=== PATIENT | male | born 1960 | race Caucasian/White ===

== ENCOUNTER 2017-10-28 09:22 | Emergency (ER) | payer BC, OTHER ==
[2017-10-28] MEDS ORDERED: ASPIRIN 81 MG CHEW TAB PO ONE (10:15)
[2017-10-28 10:22] LABS: eGFR (African) > 60; eGFR (Non-African) > 60
--- NOTE | 2017-10-28 10:28 | ED Physician Documentation ---
Chest Pain - HISTORIAN Historian: patient, spouse - HPI Chief Complaint: Chest Pain Additional Information: onset 829 cehst pain lsb rad sl lt gone now but l;t arm numb-has had prev 2 stents plus baloon 13 yrs ago and fm hx cardiac ds Timing: gradual onset, other (chest pain gone but arm discomfort continues denies sob or diaphoresis---2 weeksagosimilar sharpo pain plus diaphoresis and sob resolved w/ no eval) Last known Well Date: 10/28/17 Last Known Well Time: 08:30 Context: activity Severity: mild, moderate Quality: pressure, tightness, sharp, other (arm numb reportedly w/o pain) Chest Pain Signs/Symptoms: denies: nausea, vomiting, diaphoresis, dizziness, dyspnea, tachypnea, tachycardia Relieved By: rest (gone now-chest pain) - ROS CONST: no problems MS/LYMPH: none GI/: none EYES/ENT: none SKIN/ENDO: none NEURO/PSYCH: anxiety (slight concern) - PAST HX [place] risk factors: hypertension, cardiac disease Allergies/Adverse Reactions: Allergies Allergy/AdvReac Type Severity Reaction Status Date / Time No Known Drug Allergies Allergy Verified 10/28/17 10:28 Home Medications: Ambulatory Orders Medication Instructions Recorded Aspirin [Aspir-Low] 81 mg PO D 10/28/17 - SOCIAL HX Smoking History: non-smoker Alcohol Use: other (occnl thc) Drug Use: other ( 25-30 beer per week) - FAMILY HX Family HX: none - REVIEWED ASSESSMENTS Nursing Assessment Reviewed: Yes Vitals Reviewed: Yes ED Results Lab/Radiology - Orders Orders: ED Orders Category Date Time Status Continuous EKG monitoring Q30M Care 10/28/17 10:15 Ordered Continuous Pulse Oximetry Q30M Care 10/28/17 10:[address] IV Lock 1T Care 10/28/17 10:15 Ordered CHEST 1VIEW [RAD] Stat Exams 10/28/17 Ordered CBC/PLATELET/DIFF Routine Lab 10/28/17 10:15 Ordered CMP Routine Lab 10/28/17 10:15 Ordered CREATINE KINASE Routine Lab 10/28/17 10:15 Ordered TROPONIN I (cTnI) Stat Lab 10/28/17 10:15 Ordered Aspirin Med 10/28/17 10:15 Once 324 mg PO NOW ONE Oxygen Daily Oxygen 10/28/17 10:15 Ordered EKG WITH COMPARISON Stat Ther 10/28/17 10:15 Ordered Chest Pain Physical Exam - EXAM General Appearance: mild distress, anxious EENT: eye inspection normal Neck: nml inspection. No: no carotid bruit, JVD present, lymphadenopathy Respiratory: chest non-tender, nml breath sounds. No: no resp. distress CVS: reg. rate & rhythm, no murmur, no gallop, no friction rub Abdomen: soft, non-tender Skin: warm/dry, normal color. No: cyanosis, diaphoresis, jaundice Extremities: non-tender, normal range of motion, no evidence of injury, no edema Neuro: oriented X3, motor nml, sensation nml, mood/affect nml, cognition normal Discharge Clincal Impression: atypical chest pain, pmh cardiac problem w/stents Referrals: Primary Doctor,No [Primary Care Provider] - 2 Days Comments: tko contact cardiologists and DR PETERS very soon. rted stat sy return Condition: Good Disposition: 01 HOME, SELF-CARE Decision to Admit: NO Decision Time: 14:53
[2017-10-28 10:29] LABS: BASOPHILS % 0.7 (0.0-1.5); EOSINOPHILS % 4.6 % (0.0-6.8); MEAN CORPUSCULAR HEMOGLOBIN 29.3 pg (28.0-34.0); MEAN CORPUSCULAR VOLUME 88.4 fl (80.0-100.0); MONOCYTES % 7.4 % (0.0-11.0); NEUTROPHILS # 3.6 # k/uL (1.4-7.7)
[2017-10-28 18:35] VITALS: BP 128/64
--- NOTE | 2017-10-28 18:36 | Diagnostic Imaging Report ---
LUIS ALFREDO COOK [facility] [address] [facility] [address] [place], [place]. [address] Report Submission Date: Oct 28, 2017 10:55:19 AM CDT Patient Study Name: JOVITA STAPLES Date: Oct 28, 2017 10:34:13 AM CDT Modality Type: DX Gender: M Description: CHEST : 64 Institution: [facility] Physician: LUIS ALFREDO COOK Portable chest History: Chest pain Portable chest dated October 28, 2017 demonstrates borderline to mild cardiomegaly. Pulmonary vascularity is normal. Lungs are clear. Impression: Borderline to mild cardiomegaly. No active disease. Electronically signed on Oct 28, 2017 10:55:19 AM CDT by: Lindy AUGUSTINE
== END 2017-10-28 15:00 | disposition home or self-care (01) ==
LOC: ED 09:22
DX: R07.89 Other chest pain (principal); I51.9 Heart disease, unspecified
CPT/HCPCS: 71045; 80053; 82550; 82553; 84484; 85025; 99283; S1016

== ENCOUNTER 2018-03-02 13:30 | Outpatient (CLI) | payer OTHER | END 2018-03-02 13:32 | LOC: LAB 13:30 | PROVIDERS: ATTEND Family Medicine | DX: Z13.29 Encounter for screening for other suspected endocrine disorder (principal); Z12.5 Encounter for screening for malignant neoplasm of prostate | CPT/HCPCS: 36415; 84153; 84443 ==